=== PATIENT | female | born 1955 | race African-American/Black ===

== ENCOUNTER 2017-08-03 14:21 | Emergency (ER) | payer SELFPAY, OTHER ==
[2017-08-03] MEDS ORDERED: CONTRAST GIVEN MC (14:45)
[2017-08-03 15:01] LABS: BILIRUBIN,URINE NEGATIVE (NEG); CLARITY,URINE CLEAR; COLOR,URINE YELLOW; GLUCOSE,URINE NEGATIVE (NEG); NITRITE,URINE NEGATIVE (NEG); PROTEIN,URINE NEGATIVE (NEG-TRACE); UROBILINOGEN,URINE 0.2 mg/dL (0.2 mg/dL)
[2017-08-03 15:02] LABS: BACTERIA,URINE 0 /HPF (0-FEW); HYALINE CASTS, URINE FEW /HPF; RBC,URINE OCC /HPF (0-2); SQUAMOUS EPITHELIAL CELL,UR FEW /LPF; WBC,URINE OCC /HPF (0-4)
[2017-08-03 15:03] LABS: ANION GAP 10 (6-14); BLOOD UREA NITROGEN 11 mg/dL (7-20); CALCIUM 9.5 mg/dL (8.5-10.1); CARBON DIOXIDE 24 mmol/L (21-32); CHLORIDE 105 mmol/L (98-107); CREATININE 0.8 mg/dL (0.6-1.0); GFR 88.2; GLUCOSE 105 mg/dL (70-99); POTASSIUM 4.1 mmol/L (3.5-5.1); SODIUM 139 mmol/L (136-145)
[2017-08-03] MEDS: IOHEXOL 300 MG/ML 100ML VIAL. IV (15:14)
== END 2017-08-03 16:40 | disposition home or self-care (01) ==
LOC: ER 14:21
DX: Z04.1 Encounter for examination and observation following transport accident (principal); M54.9 Dorsalgia, unspecified; Z79.899 Other long term (current) drug therapy; V03.99XA Pedestrian with other conveyance injured in collision with car, pick-up truck or van, unspecified whether traffic or nontraffic accident, initial encounter; Y93.89 Activity, other specified; Y99.8 Other external cause status; Y92.410 Unspecified street and highway as the place of occurrence of the external cause
CPT/HCPCS: 36415; 74177; 80048; 81001; 99285; Q9967